=== PATIENT | male | born 1945 | race Caucasian/White ===

== ENCOUNTER 2021-05-06 07:41 | Outpatient (CLI) | payer MEDICARE, SELFPAY ==
--- NOTE | ~2021-05-06 | MR_ITS ---
EXAMINATION: MR lumbar spine wo [facility] EXAM DATE: 05/06/2021 08:38 INDICATION: Vertebral body compression fracture. TECHNIQUE: Multi-sequential, multiplanar MR images of the lumbar spine were obtained without contrast . Sagittal T1, T2, T2 fat saturation images. Axial T2 weighted images. There is no prior study for comparison. FINDINGS: L3 has a burst fracture, moderate loss of its height anteriorly and centrally, mild to mode rate posteriorly with about 2-3 mm retropulsion at the superior aspect. Amount of edema suggests that this is subacute, but correlate with time of injury. There is a large hemangioma within the L4 verte bral body. Moderate to severe loss of the disc height L1-2, L4-5 and L5-S1, moderate at L2-3 and L3-4 . The conus medullaris terminates at the L1/2 level and has normal signal intensity and morphology. There is 2-3 mm retrolisthesis L2 on L3. The vertebral bodies are otherwise aligned. Paraspinal soft tissue is unremarkable. Level by level evaluation: T12-L1: There is a mild diffuse disc bulge. Facet arthropathy: Mild. Neural foraminal stenosis: No stenosis. Central canal stenosis: No stenosis. L1-L2: There is a mild diffuse disc bulge. Facet arthropathy: Mild. Neural foraminal stenosis: No stenosis. Central canal stenosis: No stenosis. L2-L3: There is a mild to moderate diffuse disc bulge. Facet arthropathy: Mild to moderate. Neural foraminal stenosis: Mild to moderate bilateral. Central canal stenosis: Mild. L3-L4: There is a mild to moderate diffuse disc bulge. Facet arthropathy: Mild to moderate. Neural foraminal stenosis: Moderate right, mild to moderate left. Central canal stenosis: Mild. L4-L5: There is a moderate diffuse disc bulge. Facet arthropathy: Mild to moderate. Neural foraminal stenosis: Moderate bilateral, right more than left. Central canal stenosis: Moderate. L5-S1: There is a moderate diffuse disc bulge. Facet arthropathy: Mild to moderate. Neural foraminal stenosis: Moderate bilateral, right more than left. Central canal stenosis: Mild to moderate. IMPRESSION: 1. L2 burst fracture, probably subacute. 2. Moderate to severe disc disease, moderate mid and lower lumbar neural foraminal stenosis. Reviewed, dictated and finalized at location [facility]. [employer] IMPRESSION: 1. L2 burst fracture, probably subacute. 2. Moderate to severe disc disease, moderate mid and lower lumbar neural any inal stenosis.
== END 2021-05-06 07:42 | disposition home or self-care (01) ==
PROVIDERS: PCP Internal Medicine; Visit Provider Internal Medicine
DX: S32.021A Stable burst fracture of second lumbar vertebra, initial encounter for closed fracture (principal); M47.27 Other spondylosis with radiculopathy, lumbosacral region; M48.07 Spinal stenosis, lumbosacral region; M47.25 Other spondylosis with radiculopathy, thoracolumbar region; M48.05 Spinal stenosis, thoracolumbar region
CPT/HCPCS: 72148

== ENCOUNTER → 2021-08-07 10:56 | Outpatient (CLI) | payer MEDICARE, SELFPAY ==
--- NOTE | ~2021-08-07 | MR_ITS ---
EXAMINATION: MR orbits face neck wo/w con DATE: 08/07/2021 12:13 INDICATION: Primary optic atrophy, right eye. Right-sided visual loss. TECHNIQUE: Multisequence magnetic resonance imaging (MRI) of the orbits was performed without and wit h 19 mm MultiHance intravenous contrast. COMPARISON: None. FINDINGS: There are scattered areas of nonspecific increased T2-weighted signal intensity in the cere bral white matter. There is no intracranial hemorrhage or acute ischemic infarct. The mastoid air rajinder ls are normal. There is mild mucosal thickening in the paranasal sinuses. The optic chiasm, pituitary , extraocular muscles, and ocular globes are normal. There is no abnormal signal intensity or contras t enhancement of the optic nerves. IMPRESSION: 1. Mild nonspecific cerebral white matter disease, which likely represents chronic small vessel ische carrie disease. Reviewed, dictated and finalized at location [facility]. IMPRESSION: 1. 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
[2021-08-07 11:55] LABS: Estimated Glomerular Filt Rate > 60
== END ==
PROVIDERS: PCP Internal Medicine
DX: H47.20 Unspecified optic atrophy (principal); R90.82 White matter disease, unspecified
CPT/HCPCS: 70543; A9577

== ENCOUNTER → 2021-11-25 09:37 | Outpatient (CLI) | payer MEDICARE, SELFPAY ==
--- NOTE | ~2021-11-25 | CT_ITS ---
EXAMINATION: CT chest abdomen pelvis w con DATE: 11/25/2021 10:38 INDICATION: Anemia, weight loss TECHNIQUE: Computed tomography (CT) of the chest, abdomen, and pelvis was performed with 100 CC Omnip aque 350 intravenous contrast. Automated exposure control and iterative reconstruction technique were employed. Exam dose: 1311.11 mGy-cm total exam DLP. COMPARISON: None FINDINGS: CHEST CT: Prominent bilateral lower lobe discoid atelectasis and/or scarring and bibasilar dependent lower lobe atelectasis. Cardiomegaly. Coronary artery calcifications. Aortic and great vessel calcification. No thoracic aort ic aneurysm or dissection. No hilar or mediastinal mass lesion or lymphadenopathy. No pericardial effusion. Minimal right and slight left pleural effusion. ABDOMEN/PELVIS CT: The liver, spleen, pancreas, gallbladder, bile ducts and pancreatic duct are unremarkable. Normal morphology of the adrenal glands. No renal mass lesion or urinary tract calculus or hydroureteronephrosis. There is mild thickening of the urinary bladder wall, likely secondary to prominent prostate enlargem ent. Bilateral fat-containing inguinal hernias, larger on right. There is atherosclerotic calcification of the abdominal aorta and branches but no abdominal aortic an eurysm. No intraperitoneal or retroperitoneal or pelvic mass lesion or lymphadenopathy or ascites. Diverticulosis of the colon; no CT evidence of diverticulitis. There is soft tissue thickening at the rectosigmoid junction. Colon workup is recommended. 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 Prominent loss of height and anter ior wedging at L2 due to pathologic burst fracture. Burst fracture and vertebroplasty at L3. Osteolyt ic lesions of the scapula, pelvis. 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 Differential diagnosis includes multiple myeloma and extens trey osteolytic metastatic disease Focal soft tissue thickening at the rectosigmoid area; colon workup is recommended to exclude maligna ncy Prominent prostatomegaly Diverticulosis of the colon; no CT evidence of diverticulitis Reviewed, dictated and finalized at [facility]. Reviewed, dictated and finalized at location [facility]. 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 Differential di agnosis includes multiple myeloma and extensive osteolytic metastatic disease Focal soft tissue thickening at the rectosigmoid area; colon workup is recommen ded to exclude malignancy Prominent prostatomegaly Diverticulosis of the colon; no CT evidence of diverticulitis
[2021-11-25 10:27] LABS: Estimated Glomerular Filt Rate > 60
== END ==
PROVIDERS: PCP Internal Medicine; Visit Provider Internal Medicine
DX: D64.9 Anemia, unspecified (principal); R63.4 Abnormal weight loss; K57.30 Diverticulosis of large intestine without perforation or abscess without bleeding; N40.0 Benign prostatic hyperplasia without lower urinary tract symptoms
CPT/HCPCS: 71260; 74177; Q9967